=== PATIENT | female | born 1955 | race Caucasian/White ===

== ENCOUNTER 2016-12-15 10:50 | Observation (INO) ==
--- NOTE | 2016-12-15 11:12 | Emergency Department Note ---
START Narrative - START START: This is a start note. Patient is a 61-year-old female with a past medical history of anxiety that presents the ED with chief complaint lightheaded, dizziness and generalized weakness. Patient reports symptoms started this morning while she was driving in her car. She denies any
--- NOTE | 2016-12-15 11:21 | Emergency Department Note ---
Disposition Clinical Impression: Lightheaded, Dizziness Disposition: Still a Patient Condition: Fair Forms: ED Satisfaction Letter Dizziness HPI - General Chief Complaint: ED Dizziness Stated Complaint: Nausea Dizzy Time Seen by Provider: 12/15/16 10:58 Source: patient, EMS Mode of arrival: EMS Limitations: no limitations Nursing Notes Reviewed: Yes Vital Signs Reviewed: Yes - History of Present Illness HPI Narrative: Patient is a healthy 61-year-old female that presents the ED with chief complaint lightheaded, dizziness and generalized weakness that started approximately 2-3 hours ago. Patient reports symptoms started while she was driving in the car. She denies any chest pain, shortness of breath, change in vision, headache, nausea, vomiting, diaphoresis, abdominal pain, sensation that the room is spinning, double vision or any other symptoms/complaints. Patient states I just do not feel good I feel very weak, lightheaded and dizzy. She denies anything that makes the symptoms worse. She denies any pain. States she has had symptoms like this previously 15 years ago with an anxiety attack but has not had symptoms like this since. Pt Subjective Complaint: dizziness, lightheadedness Onset (ago): hour(s) Timing: sudden onset Description: lightheadedness, off-balance History of similar episodes: Yes (anxiety attack 15 yrs ago) History of trauma: No Severity: none Improves with: nothing Worsens with: nothing Associated symptoms: Reports: denies other symptoms, weakness (generalized). Denies: chest pain, confusion, diaphoresis, fever, chills, malaise, rash, shortness of breath, syncope, vision changes, nausea, vomiting, palpitations - Related Data Allergies Allergy/AdvReac Type Severity Reaction Status Date / Time No Known Allergies Allergy Verified 12/15/16 10:58 All systems ED: reviewed and negative except as stated. Constitutional: Reports: weakness (generalized). Denies: fever, chills Eyes: Denies: eye discharge, vision change ENT ED: Denies: congestion Cardiovascular: Denies: chest pain, palpitations, dyspnea on exertion, syncope Respiratory: Denies: cough, dyspnea, wheezes, hemoptysis Gastrointestinal: Denies: abdominal pain, nausea, vomiting, diarrhea, hematemesis, melena, hematochezia Genitourinary: Denies: urgency, dysuria, frequency, hematuria Musculoskeletal: Denies: back pain, neck pain Integumentary: Denies: rash Neurological: Reports: weakness (generalized). Denies: headache, numbness, paresthesias, confusion, abnormal gait, vertigo Endocrine: Denies: fatigue Past Medical History - Past Medical History Source: patient Medical history: Reports: no medical history Psychiatric history: Reports: anxiety [employer] history: Reports: bilateral tubal ligation - Social History Smoking Status: Never smoker Smokeless Tobacco Status: No Alcohol use: Reports: rarely Drug use: Reports: none Physical Exam - General Limitations: no limitations General appearance: alert, in no apparent distress - Head Head exam: atraumatic, normocephalic, normal inspection - Eye Eye exam: Present: normal appearance, PERRL, EOMI. Absent: scleral icterus, conjunctival injection, nystagmus, miosis, mydriasis, periorbital swelling, periorbital tenderness - ENT ENT exam: normal exam, normal oropharynx, mucous membranes moist - Neck Neck exam: Present: normal inspection, full ROM, trachea midline. Absent: tenderness, meningismus - Chest Chest inspection: Present: normal inspection, symmetric chest wall rise - Respiratory Respiratory exam: Present: normal lung sounds bilaterally - Cardiovascular Cardiovascular exam: Present: regular rate, normal rhythm, normal heart sounds - Abdominal Exam Abdominal exam: Present: soft, Non-Tender, normal bowel sounds. Absent: tenderness, distention, guarding, rebound, rigidity - Extremities Exam Extremities exam: Present: normal inspection, full ROM. Absent: tenderness, pedal edema - Expanded Lower Extremity Exam Gait: observed and normal - Back Exam Back exam: Present: normal inspection, full ROM. Absent: tenderness - Neurological Exam Neurological exam: Present: alert, oriented X3, CN II-XII intact - Psychiatric Psychiatric exam: Present: normal affect, normal mood - Skin Skin exam: Present: warm, dry, intact, normal color. Absent: rash, cyanosis, diaphoresis Course Course Narrative: Patient is a healthy 61-year-old female that presents the ED with chief complaint lightheaded, dizziness and generalized weakness that started approximately 2-3 hours ago. Patient reports symptoms started while she was driving in the car. She denies any chest pain, shortness of breath, change in vision, headache, nausea, vomiting, diaphoresis, abdominal pain, sensation that the room is spinning, double vision or any other symptoms/complaints. Patient states I just do not feel good I feel very weak, lightheaded and dizzy. She denies anything that makes the symptoms worse. She denies any pain. States she has had symptoms like this previously 15 years ago with an anxiety attack but has not had symptoms like this since. Patient is a very well/nontoxic appearing 61-year-old female. Vital stable. Afebrile. Alert 3. Appears in acute distress. Head normocephalic. No signs of external trauma. Eyes normal inspection. PERRL. Extraocular movements intact. ENT within normal limits. Airway patent. Neck supple, full range of motion, nontender. Heart RRR. Lungs CTAB. Abdomen soft, nontender. Normal bowel sounds. Back normal inspection, nontender. Extremities within normal limits. Neuro no focal neurological deficits are noted on exam. Workup initiated. Antivert given. Pt signed out to Dr. Henao secondary to shift change @ 11:00 AM. Patient stable at sign out. Dr. Henao will reevaluate this patient and decide if any additional testing is needed as well as final disposition. Vital Signs Temperature 98.1 F 12/15/16 10:55 Pulse Rate 93 12/15/16 10:55 Respiratory Rate 18 12/15/16 10:55 Blood Pressure 158/81 12/15/16 10:55 O2 Sat by Pulse Oximetry 100 12/15/16 10:55 Temperature 98.1 F 12/15/16 10:55 Pulse Rate 100 12/15/16 11:17 Respiratory Rate 18 12/15/16 10:55 Blood Pressure 164/79 12/15/16 11:17 O2 Sat by Pulse Oximetry 100 12/15/16 10:55 Oxygen Delivery Oxygen Delivery Room Air
[2016-12-15 11:49] LABS: Basophils # 0.1 K/mcL (0.0-0.2); Basophils % 0.9 %; Eosinophils # 0.1 K/mcL (0.0-0.6); Eosinophils % 0.9 %; Hematocrit 41.1 % (35.3-44.9); Hemoglobin 13.4 g/dL (11.5-15.4); Immature Granulocytes % 0.5 % (0-4); Lymphocytes # 1.3 K/mcL (0.6-4.6); Lymphocytes % 15.8 %; Mean Corpuscular HGB Conc 32.6 g/dL (31.6-35.5); Mean Corpuscular Hemoglobin 27.7 pg (28.0-33.3); Mean Corpuscular Volume 84.9 fL (83.0-100.0); Mean Platelet Volume 10.2 fL (9.4-12.4); Monocytes # 0.4 K/mcL (0.0-1.3); Monocytes % 5.1 %; Neutrophils # 6.3 K/mcL (1.6-8.9); Platelet Count 295 K/mcL (140-400); Red Blood Count 4.84 M/mcL (3.82-4.97); Red Cell Distribution Width 12.9 % (11.5-14.5); Segmented Neutrophils % 76.8 %
[2016-12-15 11:50] LABS: Bilirubin,Urine Negative (Negative); Blood,Urine Negative (Negative); Clarity,Urine Clear (Clear); Color,Urine Yellow (Yellow); Glucose,Urine (UA) Normal (Normal); Ketones,Urine Negative (Negative); Leukocyte Esterase,Urine Negative (Negative); Nitrite,Urine Negative (Negative); PH,Urine 7.5 pH Units (5.0-8.0); Protein,Urine Negative (Neg-Trace); Specific Gravity,Urine 1.019 (1.010-1.025); Urobilinogen,Urine Normal (Normal)
[2016-12-15 11:56] LABS: Amphetamine Screen,Urine Negative ng/mL (Cutoff=1000); Barbiturate Screen,Urine Negative ng/mL (Cutoff=200); Benzodiazepines Screen,Urine Negative ng/mL (Cutoff=200); Cannabinoid Screen,Urine Negative ng/mL (Cutoff = 50); Cocaine Screen,Urine Negative ng/mL (Cutoff= 300); Opiate Screen,Urine Negative ng/mL (Cutoff=300); Phencyclidine Screen,Urine Negative ng/mL (Cutoff=25)
[2016-12-15 11:57] LABS: BUN/Creatinine Ratio 21 (6-26); Blood Urea Nitrogen 18 mg/dL (7-20); Calcium 9.1 mg/dL (8.6-10.8); Carbon Dioxide 23 mEq/L (19-29); Chloride 107 mEq/L (98-109); Glucose 123 mg/dL (70-99); Osmolality,Calculated 293 (280-300); Potassium 3.8 mEq/L (3.5-4.5); Sodium 140 mEq/L (136-145); eGFR For African Americans > 60 (> 60); eGFR For Non-African Americans > 60 (> 60)
[2016-12-15] MEDS ORDERED: 0.9 % Sodium Chloride 1,000 ML IVC ONE (12:54)
--- NOTE | 2016-12-15 12:58 | Emergency Department Note ---
Disposition Clinical Impression: Near syncope Disposition: Admitted As Inpatient Condition: Fair Forms: ED Satisfaction Letter Time of Disposition: 13:03 General Adult HPI - General Chief complaint: ED Dizziness Stated complaint: Nausea Dizzy Time Seen by Provider: 12/15/16 10:58 Source: patient, EMS Mode of arrival: EMS Limitations: no limitations - History of Present Illness Pain Scale: 0 - Related Data Allergies Allergy/AdvReac Type Severity Reaction Status Date / Time No Known Allergies Allergy Verified 12/15/16 10:58 Constitutional: Reports: weakness (generalized). Denies: fever, chills Eyes: Denies: eye discharge, vision change ENT ED: Denies: congestion Cardiovascular: Denies: chest pain, palpitations, dyspnea on exertion, syncope Respiratory: Denies: cough, dyspnea, wheezes, hemoptysis Gastrointestinal: Denies: abdominal pain, nausea, vomiting, diarrhea, hematemesis, melena, hematochezia Genitourinary: Denies: urgency, dysuria, frequency, hematuria Musculoskeletal: Denies: back pain, neck pain Integumentary: Denies: rash Neurological: Reports: weakness (generalized). Denies: headache, numbness, paresthesias, confusion, abnormal gait, vertigo Endocrine: Denies: fatigue Past Medical History - Past Medical History Medical history: Reports: no medical history Psychiatric history: Reports: anxiety [employer] history: Reports: bilateral tubal ligation - Social History Smoking Status: Never smoker Smokeless Tobacco Status: No Alcohol use: Reports: rarely Drug use: Reports: none Physical Exam - General Limitations: no limitations General appearance: alert, in no apparent distress - Head Head exam: atraumatic, normocephalic - Eye Eye exam: Present: normal appearance, PERRL, EOMI - ENT ENT exam: normal exam, normal oropharynx, mucous membranes moist, normal external ear exam - Neck Neck exam: Present: normal inspection, full ROM. Absent: thyromegaly - Chest Chest inspection: Present: normal inspection, symmetric chest wall rise. Absent : tenderness - Respiratory Respiratory exam: Present: normal lung sounds bilaterally. Absent: respiratory distress, wheezes - Cardiovascular Cardiovascular exam: Present: regular rate, normal rhythm, normal heart sounds - Abdominal Exam Abdominal exam: Present: soft, Non-Tender - Extremities Exam Extremities exam: Present: normal inspection, full ROM. Absent: pedal edema, calf tenderness - Neurological Exam Neurological exam: Present: alert, oriented X3, CN II-XII intact, normal gait, reflexes normal. Absent: motor sensory deficit - Psychiatric Psychiatric exam: Present: normal affect, normal mood - Skin Skin exam: Present: warm, dry. Absent: rash Course - Reevaluation(s) Reevaluation #1: I assumed care of the patient at the start of my shift. She had already been seen by the physician assistant controller and had full laboratory workup initiated. In my discussion with the patient she has had 3 episodes of this profound weakness and near syncope arising under different circumstances this morning. Once she was sitting in a car, once she was up at a garage sale. It sounds like symptoms were severe enough. Family members witnessed this and had to catch her and dragged her over to a chair. At this time she just feels a burning feeling in her legs. She has no other symptoms now. Monitor is been fine. EKG is fine. Lab workup is negative. Although the workup is negative, the story is concerning to me for multiple episodes of near syncope. I patient is to be admitted for further evaluation. I will speak with the hospitalist. Time: 12:57 - Consultations Consultation #1: RU Galan - I discussed the case with the hospitalist nurse practitioner. We reviewed the history and exam and diagnostic results. The patient has been accepted for admission. Time: 13:01 Vital Signs Temperature 98.1 F 12/15/16 10:55 Pulse Rate 93 12/15/16 10:55 Respiratory Rate 18 12/15/16 10:55 Blood Pressure 158/81 12/15/16 10:55 O2 Sat by Pulse Oximetry 100 12/15/16 10:55 Temperature 98.1 F 12/15/16 10:55 Pulse Rate 100 12/15/16 11:17 Respiratory Rate 18 12/15/16 10:55 Blood Pressure 164/79 12/15/16 11:17 O2 Sat by Pulse Oximetry 100 12/15/16 10:55 Oxygen Delivery Oxygen Delivery Room Air Medical Decision Making - Medical Records Medical records reviewed: Yes I reviewed the patient's medical records. - Lab Data Lab results reviewed: Yes I reviewed the patient's lab results. Result diagrams: 12/15/16 11:36 12/15/16 11:36 Lab Results 12/15/16 12/15/16 12/15/16 Range/Units 11:03 11:03 11:36 WBC 8.2 (4.3-11.1) K/mcL RBC 4.84 (3.82-4.97) M/mcL Hgb 13.4 (11.5-15.4) g/dL Hct 41.1 (35.3-44.9) % MCV 84.9 (83.0-100.0) fL MCH 27.7 L (28.0-33.3) pg MCHC 32.6 (31.6-35.5) g/dL RDW 12.9 (11.5-14.5) % Plt Count 295 (140-400) K/mcL MPV 10.2 (9.4-12.4) fL Immature Gran % 0.5 (0-4) % Seg Neutrophils % 76.8 % Lymphocytes % 15.8 % Monocytes % 5.1 % Eosinophils % 0.9 % Basophils % 0.9 % Neutrophils # 6.3 (1.6-8.9) K/mcL Lymphocytes # 1.3 (0.6-4.6) K/mcL Monocytes # 0.4 (0.0-1.3) K/mcL Eosinophils # 0.1 (0.0-0.6) K/mcL Basophils # 0.1 (0.0-0.2) K/mcL Sodium (136-145) mEq/L Potassium (3.5-4.5) mEq/L Chloride (98-109) mEq/L Carbon Dioxide (19-29) mEq/L BUN (7-20) mg/dL Creatinine (0.57-1.11) mg/dL Est GFR ( Amer) (> 60) Est GFR (Non-Af Amer) (> 60) BUN/Creatinine Ratio (6-26) Glucose (70-99) mg/dL POC Glucose (58-89) Calculated Osmolality (280-300) Calcium (8.6-10.8) mg/dL Troponin I (0-0.03) ng/mL Urine Color Yellow (Yellow) Urine Clarity Clear (Clear) Urine pH 7.5 (5.0-8.0) pH Units Ur Specific [place] 1.019 (1.010-1.025) Urine Protein Negative (Neg-Trace) mg/dL Urine Glucose (UA) Normal (Normal) mg/dL Urine Ketones Negative (Negative) mg/dL Urine Blood Negative (Negative) Urine Nitrite Negative (Negative) Urine Bilirubin Negative (Negative) Urine Urobilinogen Normal (Normal) mg/dL Ur Leukocyte Esterase Negative (Negative) Ur Culture Indicated? NO (NO) Urine Opiates Screen Negative (Vvwplq=209) ng/mL Ur Barbiturates Screen Negative (Yttbwl=589) ng/mL Ur Phencyclidine Scrn Negative (Cutoff=25) ng/mL Ur Amphetamines Screen Negative (Dewojf=6763) ng/mL U Benzodiazepines Scrn Negative (Mmoyzv=290) ng/mL Urine Cocaine Screen Negative (Cutoff= 300) ng/mL U Marijuana (THC) Screen Negative (Cutoff = 50) ng/mL 12/15/16 12/15/16 12/15/16 Range/Units 11:36 11:36 11:55 WBC (4.3-11.1) K/mcL RBC (3.82-4.97) M/mcL Hgb (11.5-15.4) g/dL Hct (35.3-44.9) % MCV (83.0-100.0) fL MCH (28.0-33.3) pg MCHC (31.6-35.5) g/dL RDW (11.5-14.5) % Plt Count (140-400) K/mcL MPV (9.4-12.4) fL Immature Gran % (0-4) % Seg Neutrophils % % Lymphocytes % % Monocytes % % Eosinophils % % Basophils % % Neutrophils # (1.6-8.9) K/mcL Lymphocytes # (0.6-4.6) K/mcL Monocytes # (0.0-1.3) K/mcL Eosinophils # (0.0-0.6) K/mcL Basophils # (0.0-0.2) K/mcL Sodium 140 (136-145) mEq/L Potassium 3.8 (3.5-4.5) mEq/L Chloride 107 (98-109) mEq/L Carbon Dioxide 23 (19-29) mEq/L BUN 18 (7-20) mg/dL Creatinine 0.86 (0.57-1.11) mg/dL Est GFR ( Amer) > 60 (> 60) Est GFR (Non-Af Amer) > 60 (> 60) BUN/Creatinine Ratio 21 (6-26) Glucose 123 H (70-99) mg/dL POC Glucose 123 H (58-89) Calculated Osmolality 293 (280-300) Calcium 9.1 (8.6-10.8) mg/dL Troponin I 0.01 (0-0.03) ng/mL Urine Color (Yellow) Urine Clarity (Clear) Urine pH (5.0-8.0) pH Units Ur Specific [place] (1.010-1.025) Urine Protein (Neg-Trace) mg/dL Urine Glucose (UA) (Normal) mg/dL Urine Ketones (Negative) mg/dL Urine Blood (Negative) Urine Nitrite (Negative) Urine Bilirubin (Negative) Urine Urobilinogen (Normal) mg/dL Ur Leukocyte Esterase (Negative) Ur Culture Indicated? (NO) Urine Opiates Screen (Hyhqfe=478) ng/mL Ur Barbiturates Screen (Emliwi=473) ng/mL Ur Phencyclidine Scrn (Cutoff=25) ng/mL Ur Amphetamines Screen (Qgrxcv=4301) ng/mL U Benzodiazepines Scrn (Lxpzhe=660) ng/mL Urine Cocaine Screen (Cutoff= 300) ng/mL U Marijuana (THC) Screen (Cutoff = 50) ng/mL - Radiology Data Radiology results reviewed: Yes I reviewed the patient's radiology results. - EKG Data EKG #1 EKG attestation: Yes I reviewed and interpreted this EKG. EKG shows normal: sinus rhythm, axis, intervals, QRS complexes, ST-T waves Rate: normal Interpretation: no acute changes (Although there was an area of artifact.)
[2016-12-15] MEDS ORDERED: Naloxone 0.4 MG/ML INJ IVP PRN (14:15)
[2016-12-15] MEDS ORDERED: Ondansetron 4 MG/2 ML VIAL IVP PRN (14:15)
[2016-12-15] MEDS ORDERED: *HR* Metoprolol 5 MG/5 ML VIAL IVP PRN (14:18)
[2016-12-15] MEDS ORDERED: ALPRAZolam 0.25 MG TABLET PO PRN (14:18)
--- NOTE | 2016-12-15 14:47 | Internal Med History&Physical ---
<AlyLinsey M - Last Filed: 12/15/16 14:43> Date of Encounter: 12/15/16 Time of Encounter: 14:43 Assessment and Plan (1) Near syncope Current visit: Yes Status: Acute Patient reporting episodes of lightheadedness, feeling as though she is going to faint, extremities feeling tingling. She had 3 episodes this morning which prompted her to come to the emergency department. She has had more since being here. EKG showed normal sinus rhythm. Report was negative at 0.01. CXR showed no acute process. Orthostatic blood pressure showed no significant change between positions. Cardiac risk factors include obesity, significant smoking history. Concern for arrhythmia versus anxiety versus carotid stenosis. Continuous quality assurance monitor chassis Echocardiogram Carotid Dopplers (2) Anxiety Current visit: Yes Status: Acute Patient reports history of panic attacks. She states they resolved 15 years ago when she retired. She does take Prozac daily. Patient reports the episode she is having to remind her somewhat of reports her previous panic attacks. She is anxious about what is going on and been in the hospital. Continue home dose of Prozac Xanax 0.25 mg twice a day when necessary (3) Hypertension Current visit: Yes Status: Suspected Patient has been hypertensive since arrival with blood pressures in the 150s systolic. They be due to anxiety. We will continue to monitor vital signs. Give Lopressor 5 mg IV push every 6 hours when necessary for blood pressure greater than 150 systolic. Hold for heart rate less than 60. Qualifiers: Hypertension type: essential hypertension Qualified Code(s): I10 - Essential (primary) hypertension (4) DVT prophylaxis Current visit: Yes Status: Acute Antiembolic stockings Lovenox 40 mg subcutaneous daily Internal Medicine - H&P: HPI Chief complaint: pre-syncope Admitted From: Emergency Dept Plans for Post Hospital Care: Home History of present illness: Ms. Hoffman is a 61 year old female with no significant medical history outside of depression, presented to the emergency department today with complaints of presyncope. She reports that she has a sensation that she is going to faint, feels lightheaded, and feels like her extremities are tingling. The episodes last for approximately 30 seconds. She reports she had 3 of these episodes this morning which prompted her to go to the emergency department she does report that she has had these episodes in the past, however there were rare and sporadic, she approximated 3 episodes in the last 1 year. She reports that she has had a few episodes while she has been here in the emergency department. She reports she feels better when she puts her head between her knees. She reports she had a previous history of panic attacks, feels somewhat similar to panic attacks. She reports she has not had a panic attack and 15 years, when asked why they stopped she said because she retired. These episodes have occurred while she was sitting in her car and driving, while she was walking, while she was laying on the cart in the emergency department. She denies any headaches, palpitations, chest pain, shortness of breath, nausea, vomiting, diarrhea, fever, chills, sweats. Evaluation in the emergency department included an EKG which showed normal sinus rhythm, chest x-ray which showed no acute process, labs were grossly normal. She was mildly tachycardic with heart rate in the 90s to low 100s, blood pressure was in the 150s systolic. Orthostatic vital signs were checked with no significant change between position. On exam, patient alert and oriented, appears anxious. Lungs are clear bilaterally to auscultation heart has regular rate and rhythm with no murmurs rubs or gallops. Past Med Surg Social Fam HX - Past Medical History Medical history: no medical history Psychiatric history: anxiety - Past Surgical History Surgical History: orthopedic, other - Social History Smoking Status: Former smoker (50 pack year history) Smokeless Tobacco Status: No Alcohol use: rarely Drug use: none - Family History Mother Living Status: Age at : 65 Cause of : heart failure Hx Family Cardiac Disorders: Yes Father Living Status: Age at : 83 Cause of : cva Internal Medicine - H&P: Meds Acetaminophen [Tylenol] 1,000 mg PO Q6HR PRN 12/15/16 [History] FLUoxetine HCl [Prozac] 40 mg PO QAM 12/15/16 [History] Multivitamin [One Daily Essential] 1 tab PO DAILY 12/15/16 [History] Naproxen Sodium [Aleve] 440 mg PO BID PRN 12/15/16 [History] Zolpidem [Ambien] 10 mg PO HS 12/15/16 [History] Allergies No Known Allergies Allergy (Verified 12/15/16 10:58) All Systems PM: A 10-system review of systems was performed and is negative for pertinent findings except as documented above in the HPI. - Constitutional Constitutional: no chills, no fever(s), no night sweats - EENT Eyes: no change in vision, no discharge, no pain, no photophobia Ears: no ear discharge, no ear pain, no tinnitus Nose, mouth and throat: no dysphagia, no nasal discharge, no neck pain, no sore throat - Cardiovascular Cardiovascular ROS IM: lightheadedness, no chest pain, no diaphoresis, no dyspnea, no palpitations, no syncope - Respiratory Respiratory: no cough, no dyspnea, no wheezing, no excessive phlegm production - Gastrointestinal Gastrointestinal: no abdominal pain, no diarrhea, no hematemesis, no hematochezia, no melena, no nausea, no vomiting - Genitourinary Genitourinary: no change in urinary stream, no dysuria, no flank pain, no hematuria - Musculoskeletal Musculoskeletal ROS IM: tingling (in extremities during episodes), no numbness - Integumentary Integumentary IM: no rash, no unusual bruising - Neurological Neurological ROS: no confusion, no convulsions, no focal weakness, no numbness, no tingling, no tremor(s) - Hematologic/Lymphatic Hematologic/Lymphatic: no easy bruising - Constitutional Vitals: Temp Pulse Resp BP Pulse Ox 0 F L 100 18 151/71 100 12/15/16 14:24 12/15/16 11:17 12/15/16 14:24 12/15/16 14:24 12/15/16 10:55 General appearance: Present: mild distress, A&O X 3, morbidly obese, pleasant - Head Head exam: Present: atraumatic, normocephalic - Eye Eye exam: Present: PERRL, conjuntiva pink, sclera anicteric Pupils: Present: PERRL - Neck Neck exam general surgery: Present: supple, trachea midline. Absent: lymphadenopathy - Respiratory Respiratory exam: Present: CTAB. Absent: accessory muscle use, rales, rhonchi, wheezes - Cardiovascular Cardiovascular exam: Present: RRR, +S1, +S2. Absent: diastolic murmur, gallop, rubs, systolic murmur - GI/Abdominal GI/Abdominal exam: Present: normal bowel sounds, soft, no peritoneal signs. Absent: distended, tenderness - Extremities Exam Extremities exam: Present: warm, radial pulses palpable and symetrical. Absent : calf tenderness, cyanotic, pedal edema - Neurological Exam Neurological exam: Present: CN II-XII intact, oriented X3, no focal deficits. Absent: pronater drift, facial droop, speech deficit - Skin Skin exam: Present: dry, intact Internal Med - H&P Results - Labs CBC & Chem 7: 12/15/16 11:36 12/15/16 11:36 Labs: All Lab Results (24 Hours) 12/15/16 12/15/16 12/15/16 Range/Units 11:03 11:03 11:36 WBC 8.2 (4.3-11.1) K/mcL RBC 4.84 (3.82-4.97) M/mcL Hgb 13.4 (11.5-15.4) g/dL Hct 41.1 (35.3-44.9) % MCV 84.9 (83.0-100.0) fL MCH 27.7 L (28.0-33.3) pg MCHC 32.6 (31.6-35.5) g/dL RDW 12.9 (11.5-14.5) % Plt Count 295 (140-400) K/mcL MPV 10.2 (9.4-12.4) fL Immature Gran % 0.5 (0-4) % Seg Neutrophils % 76.8 % Lymphocytes % 15.8 % Monocytes % 5.1 % Eosinophils % 0.9 % Basophils % 0.9 % Neutrophils # 6.3 (1.6-8.9) K/mcL Lymphocytes # 1.3 (0.6-4.6) K/mcL Monocytes # 0.4 (0.0-1.3) K/mcL Eosinophils # 0.1 (0.0-0.6) K/mcL Basophils # 0.1 (0.0-0.2) K/mcL Sodium (136-145) mEq/L Potassium (3.5-4.5) mEq/L Chloride (98-109) mEq/L Carbon Dioxide (19-29) mEq/L BUN (7-20) mg/dL Creatinine (0.57-1.11) mg/dL Est GFR ( Amer) (> 60) Est GFR (Non-Af Amer) (> 60) BUN/Creatinine Ratio (6-26) Glucose (70-99) mg/dL POC Glucose (58-89) Calculated Osmolality (280-300) Calcium (8.6-10.8) mg/dL Troponin I (0-0.03) ng/mL Urine Color Yellow (Yellow) Urine Clarity Clear (Clear) Urine pH 7.5 (5.0-8.0) pH Units Ur Specific [place] 1.019 (1.010-1.025) Urine Protein Negative (Neg-Trace) mg/dL Urine Glucose (UA) Normal (Normal) mg/dL Urine Ketones Negative (Negative) mg/dL Urine Blood Negative (Negative) Urine Nitrite Negative (Negative) Urine Bilirubin Negative (Negative) Urine Urobilinogen Normal (Normal) mg/dL Ur Leukocyte Esterase Negative (Negative) Ur Culture Indicated? NO (NO) Urine Opiates Screen Negative (Nidysh=181) ng/mL Ur Barbiturates Screen Negative (Mcgwdc=483) ng/mL Ur Phencyclidine Scrn Negative (Cutoff=25) ng/mL Ur Amphetamines Screen Negative (Jimskv=9109) ng/mL U Benzodiazepines Scrn Negative (Xhzpqy=780) ng/mL Urine Cocaine Screen Negative (Cutoff= 300) ng/mL U Marijuana (THC) Screen Negative (Cutoff = 50) ng/mL 12/15/16 12/15/16 12/15/16 Range/Units 11:36 11:36 11:55 WBC (4.3-11.1) K/mcL RBC (3.82-4.97) M/mcL Hgb (11.5-15.4) g/dL Hct (35.3-44.9) % MCV (83.0-100.0) fL MCH (28.0-33.3) pg MCHC (31.6-35.5) g/dL RDW (11.5-14.5) % Plt Count (140-400) K/mcL MPV (9.4-12.4) fL Immature Gran % (0-4) % Seg Neutrophils % % Lymphocytes % % Monocytes % % Eosinophils % % Basophils % % Neutrophils # (1.6-8.9) K/mcL Lymphocytes # (0.6-4.6) K/mcL Monocytes # (0.0-1.3) K/mcL Eosinophils # (0.0-0.6) K/mcL Basophils # (0.0-0.2) K/mcL Sodium 140 (136-145) mEq/L Potassium 3.8 (3.5-4.5) mEq/L Chloride 107 (98-109) mEq/L Carbon Dioxide 23 (19-29) mEq/L BUN 18 (7-20) mg/dL Creatinine 0.86 (0.57-1.11) mg/dL Est GFR ( Amer) > 60 (> 60) Est GFR (Non-Af Amer) > 60 (> 60) BUN/Creatinine Ratio 21 (6-26) Glucose 123 H (70-99) mg/dL POC Glucose 123 H (58-89) Calculated Osmolality 293 (280-300) Calcium 9.1 (8.6-10.8) mg/dL Troponin I 0.01 (0-0.03) ng/mL Urine Color (Yellow) Urine Clarity (Clear) Urine pH (5.0-8.0) pH Units Ur Specific [place] (1.010-1.025) Urine Protein (Neg-Trace) mg/dL Urine Glucose (UA) (Normal) mg/dL Urine Ketones (Negative) mg/dL Urine Blood (Negative) Urine Nitrite (Negative) Urine Bilirubin (Negative) Urine Urobilinogen (Normal) mg/dL Ur Leukocyte Esterase (Negative) Ur Culture Indicated? (NO) Urine Opiates Screen (Inclna=694) ng/mL Ur Barbiturates Screen (Mahqnm=055) ng/mL Ur Phencyclidine Scrn (Cutoff=25) ng/mL Ur Amphetamines Screen (Unnplo=3164) ng/mL U Benzodiazepines Scrn (Htpfkd=120) ng/mL Urine Cocaine Screen (Cutoff= 300) ng/mL U Marijuana (THC) Screen (Cutoff = 50) ng/mL - Diagnostic Studies Chest x-ray Additional comments: Chest X-Ray 12/15/16 11:03 IMPRESSION: No acute process. D/ / Milana Ruth MD / Milana Ruth MD Interpreting Provider: Milana Ruth MD <Jodee Sood - Last Filed: 12/16/16 08:24> Date of Encounter: 12/15/16 Time of Encounter: 16:05 Internal Medicine - H&P: HPI History of present illness: Ms. Hoffman is a 61 year old female All Systems PM: A 10-system review of systems was performed and is negative for pertinent findings except as documented above in the HPI. - Constitutional Vitals: Temp Pulse Resp BP Pulse Ox 98.3 F 91 15 136/81 98 12/16/16 07:11 12/16/16 07:11 12/16/16 07:11 12/16/16 07:11 12/16/16 07:11 Internal Med - H&P Results - Labs CBC & Chem 7: 12/16/16 01:13 12/16/16 01:13 Labs: Short CBC 12/16/16 Range/Units 01:13 WBC 9.4 (4.3-11.1) K/mcL Hgb 12.2 (11.5-15.4) g/dL Hct 37.8 (35.3-44.9) % Plt Count 267 (140-400) K/mcL Neutrophils # 5.5 (1.6-8.9) K/mcL BMP 12/16/16 01:13 Sodium 141 Potassium 3.7 Chloride 109 Carbon Dioxide 23 BUN 13 Creatinine 0.78 Glucose 92 Calcium 8.8 Cardiac Enzymes 12/15/16 12/16/16 Range/Units 18:06 01:13 Troponin I 0.00 0.00 (0-0.03) ng/mL - Attending Attestation I examined this patient and my medical decision-making was reviewed with the [employer] ADMINISTRATOR/PA/Advanced Practice Nurse/Resident Physician. I agree with the documented findings, disposition and treatment plan as described except to the extent set forth below.
[2016-12-16 01:27] LABS: Basophils # 0.1 K/mcL (0.0-0.2); Basophils % 0.7 %; Eosinophils # 0.1 K/mcL (0.0-0.6); Eosinophils % 1.4 %; Hematocrit 37.8 % (35.3-44.9); Hemoglobin 12.2 g/dL (11.5-15.4); Immature Granulocytes % 0.2 % (0-4); Lymphocytes # 2.9 K/mcL (0.6-4.6); Lymphocytes % 30.9 %; Mean Corpuscular HGB Conc 32.3 g/dL (31.6-35.5); Mean Corpuscular Hemoglobin 27.5 pg (28.0-33.3); Mean Corpuscular Volume 85.3 fL (83.0-100.0); Mean Platelet Volume 10.2 fL (9.4-12.4); Monocytes # 0.7 K/mcL (0.0-1.3); Monocytes % 7.6 %; Neutrophils # 5.5 K/mcL (1.6-8.9); Platelet Count 267 K/mcL (140-400); Red Blood Count 4.43 M/mcL (3.82-4.97); Red Cell Distribution Width 13.2 % (11.5-14.5); Segmented Neutrophils % 59.2 %
[2016-12-16 01:40] LABS: BUN/Creatinine Ratio 17 (6-26); Blood Urea Nitrogen 13 mg/dL (7-20); Calcium 8.8 mg/dL (8.6-10.8); Carbon Dioxide 23 mEq/L (19-29); Chloride 109 mEq/L (98-109); Glucose 92 mg/dL (70-99); Osmolality,Calculated 292 (280-300); Potassium 3.7 mEq/L (3.5-4.5); Sodium 141 mEq/L (136-145); eGFR For African Americans > 60 (> 60); eGFR For Non-African Americans > 60 (> 60)
--- NOTE | 2016-12-16 07:20 | Electrocardiograph Report ---
[place] [employer] Test Date: 2016-12-15 Pat Name: No Hoffman Department: 105 Room: 3B46 Gender: F [employer] Packer: : 1955 Requested By: Jacinto Faust Order Number: [id number] Reading MD: Angel Cobos MD Measurements Intervals [place] Rate: 97 P: 24 RI: 156 QRS: 32 QRSD: 95 T: -4 QT: 339 QTc: 393 Interpretive Statements SINUS RHYTHM WITH SINUS ARRHYTHMIA NONSPECIFIC ST \T\ T-WAVE ABNORMALITY Electronically Signed On 12-16-2016 7:18:45 EDT by Angel Cobos MD
[2016-12-16] MEDS ORDERED: FLUoxetine 20 MG CAPSULE PO SCH (09:00)
[2016-12-16 11:33] VITALS: BP 130/82
--- NOTE | 2016-12-16 14:06 | Discharge Summary ---
Date of Encounter: 12/16/16 Time of Encounter: 13:00 - Discharge Diagnosis (1) Near syncope Priority: Primary Status: Resolved Comments: Patient was asymptomatic while admitted however the day before, she had 5 episodes of dizziness where she became acutely dizzy and had to sit down. She denied sensation of the room spinning around her. Suspect BPPV, follow-up outpatient (2) BPPV (benign paroxysmal positional vertigo) Priority: Primary Status: Suspected Qualifiers: Laterality: bilateral Qualified Code(s): H81.13 - Benign paroxysmal vertigo , bilateral (3) Anxiety Priority: Secondary Status: Chronic (4) Hypertension Priority: Primary Status: Ruled-out Comments: Patient was admitted and observed overnight and remained normotensive. Recommend daily blood pressure checks at home, follow up outpatient. No antihypertensive medications indicated at this time. Qualifiers: Hypertension type: essential hypertension Qualified Code(s): I10 - Essential (primary) hypertension (5) DVT prophylaxis Priority: Primary Status: Acute Comments: Observation patient. - Discharge Medications Prescriptions: Loratadine [Claritin] 10 mg PO DAILY #30 capsule Home Medications: Acetaminophen [Tylenol] 1,000 mg PO Q6HR PRN 12/15/16 [History] FLUoxetine HCl [Prozac] 40 mg PO QAM 12/15/16 [History] Multivitamin [One Daily Essential] 1 tab PO DAILY 12/15/16 [History] Naproxen Sodium [Aleve] 440 mg PO BID PRN 12/15/16 [History] Zolpidem [Ambien] 10 mg PO HS 12/15/16 [History] Loratadine [Claritin] 10 mg PO DAILY #30 capsule 12/16/16 [Rx] Allergies/Adverse Reactions: Allergies No Known Allergies Allergy (Verified 12/15/16 10:58) Procedures/tests Complete & Pending: Procedures Performed prior 72 hours Category Date Time Status EV carotid duplex imaging BI Routine Y 12/15/16 14:18 Completed EV echocardiogram Routine Y 12/15/16 14:18 Completed Date of admission: 12/15/16 13:13 Primary care physician: PCP NO Discharging clinician: Sonia Coffey Anticipated date of discharge: 12/16/16 - Patient Status Disposition: Home, Self-Care Condition: Good Functional capacity at discharge: independent ambulation Overall status at discharge: patient is back to baseline - Discharge Instructions Follow Up With: NO,PCP [Primary Care Provider] - Steffany Stevens MD [Partnered Physician] - Additional Instructions: Follow-up with psychiatrist as needed - Diet and Activity Activity: increase activity as tolerated Diet: regular diet Hospital course: Ms. Hoffman is a 61 year old female with past medical history of depression/ anxiety with history of panic attacks, former tobacco abuse. Patient presented to the emergency department with a chief complaint of presyncope. Patient stating she had improvement onset of the sensation that she was going to faint, she felt lightheaded, and felt as if her extremities were tingling. These episodes lasted for approximately 30 seconds and she reported 3 of them on the morning of presentation. Patient stating she has had these episodes in the past however not this frequent. She continued to have these episodes while in the emergency department. She stated she felt better when she put her head between her knees. Patient stating this felt somewhat similar to her prior panic attacks. She reports that she had panic attacks persistently until she retired 15 years ago. Patient denied headaches, palpitations, chest pain, shortness of breath, nausea vomiting or diarrhea. Workup in the emergency department unremarkable. ECG with normal sinus rhythm. Chest x-ray negative. Patient was mildly tachycardic and her blood pressure was borderline hypertensive. Orthostatic vital signs were unremarkable. She was admitted to the hospitalist service for further evaluation and management. She remained normotensive throughout the rest of her admission and did not require antihypertensive medications. She did not have any further episodes while admitted. Echocardiogram unremarkable with ejection fraction of 65% and mild diastolic dysfunction. Patient was euvolemic on examination throughout this admission and denied shortness of breath. Patient was able tolerate a regular diet while admitted. Carotid ultrasound official report pending at time of discharge however verbal report with nonstenotic plaque bilaterally. Patient denied any vision changes or any gait difficulties. Likely cause of patient's episodes could have been panic attacks but also suspect BPPV. She also stated she started to endorse seasonal allergy symptoms and she was started on Claritin. She was instructed to follow-up with her primary care provider for possible referral to rehabilitation for repositioning. She was discharged home in stable condition with close outpatient follow-up recommended. ITS Impressions Chest X-Ray 12/15/16 11:03 IMPRESSION: No acute process. D/ / Milana Ruth MD / Milana Ruth MD Interpreting Provider: Milana Ruth MD Echocardiogram impressions: LVEF 65%. Normal LV chamber size and function. Mild concentric left ventricular hypertrophy. Mild left ventricular diastolic dysfunction. Normal right ventricular structure and function. Mild pulmonary hypertension. No significant valvular dysfunction. - Time Spent with Patient Total time spent providing and/or coordinating discharge services: - Constitutional Vitals: Temp Pulse Resp BP Pulse Ox 98.7 F 85 14 130/82 98 12/16/16 11:32 12/16/16 11:32 12/16/16 11:32 12/16/16 11:32 12/16/16 11:32 General appearance: Present: A&O X 3, pleasant, no acute distress, obese, answers questions appropriately - Head Head exam: Present: atraumatic, normocephalic - Eye Eye exam: Present: PERRL, conjuntiva pink, sclera anicteric Pupils: Present: PERRL - Neck Neck exam general surgery: Present: supple, trachea midline. Absent: lymphadenopathy - Respiratory Respiratory exam: Present: CTAB. Absent: accessory muscle use, rales, respiratory distress, rhonchi, wheezes - Cardiovascular Cardiovascular exam: Present: RRR, +S1, +S2. Absent: diastolic murmur, gallop, rubs, systolic murmur - GI/Abdominal GI/Abdominal exam: Present: normal bowel sounds, soft, no peritoneal signs. Absent: distended, tenderness - Extremities Exam Extremities exam: Present: warm, radial pulses palpable and symetrical. Absent : calf tenderness, cyanotic, pedal edema - Neurological Exam Neurological exam: Present: alert, CN II-XII intact, normal gait, oriented X3, no focal deficits, strengths equal and symetr throughout. Absent: pronater drift, facial droop, speech deficit - Psychiatric Psychiatric exam: Present: anxious - Skin Skin exam: Present: dry, intact, normal color, warm
--- NOTE | 2016-12-16 15:32 | Carotid Imaging Report ---
Carotid Duplex Patient Name:No Hoffman Order Number:[id number] Procedure Date:12/15/2016 Date:1955ge:61 yrs Gender:Female Lt BP:151 / 71 mmHg Rt.BP:151 / 71 mmHgHeart Rate: Location:[facility] Room #: 3B46 [employer] Producer:Jhoan Rodriguez Referring MD:Linsey Aly CNP extension work instructor:None Reading MD:Shravan Bernardo MD Primary Indications:Pre-syncope Risk Factors Yes/No Hypertension Yes Impressions: Findings: Bilateral carotid system has nonstenotic plaque. Findings Carotid Duplex: Right: There is nonstenotic plaque in the right bifurcation. There is smooth homogeneous plaque. Left: There is nonstenotic plaque in the left bifurcation. There is irregular homogeneous plaque. Carotid Results Right PSV EDV Assessment Proximal CCA 93 19 Mid CCA 87 26 Distal CCA 91 26 Bifurcation 71 23 Non Stenotic Plaque Proximal ICA 62 23 Mid ICA 71 24 Distal ICA 96 38 ECA 97 16 Vertebral Artery 52 22 Left PSV EDV Assessment Proximal CCA 63 14 Mid CCA 65 18 Bifurcation 72 17 Non Stenotic Plaque Proximal ICA 57 15 Mid ICA 79 25 Distal ICA 90 35 ECA 114 20 Vertebral Artery 81 23 Ratio's Right ICA/CCA Ratio: 1.10 ICA/CCA Values: 96/87 Left ICA/CCA Ratio: 1.38 ICA/CCA Values: 90/65 Updated by Shravan Bernardo MD on 12/16/2016 3:25:14 PM electronically signed on 12/16/2016 3:25:25 PM with status of Final
== END 2016-12-16 14:43 | disposition home or self-care (01) ==
LOC: EMEROO 10:50 → 3BNU 10:50
PROVIDERS: ADMIT Nurse Practitioner Acute Care; ATTEND Nurse Practitioner Family